=== PATIENT | male | born 1990 | race Caucasian/White ===

== ENCOUNTER 2020-01-26 12:16 | Emergency (ER) | payer MEDICAID | END 2020-01-26 12:42 | disposition left against medical advice (07) | LOC: ED 12:16 | DX: Z53.21 Procedure and treatment not carried out due to patient leaving prior to being seen by health care provider (principal) ==

== ENCOUNTER 2020-01-27 11:35 | Emergency (ER) | payer OTHER ==
[~2020-01-27] VITALS: Ht 182.9 cm; Wt 88.9 kg
[2020-01-27 11:50] VITALS: BP 120/64; Ht 182.9 cm; Wt 88.9 kg
== END 2020-01-27 14:05 | disposition home or self-care (01) ==
LOC: ED 11:35
DX: S63.501A Unspecified sprain of right wrist, initial encounter (principal); S40.012A Contusion of left shoulder, initial encounter; W20.8XXA Other cause of strike by thrown, projected or falling object, initial encounter; Y93.89 Activity, other specified; Y92.89 Other specified places as the place of occurrence of the external cause; Y99.8 Other external cause status

== ENCOUNTER 2020-03-14 17:31 | Emergency (ER) | payer OTHER ==
[~2020-03-14] VITALS: Ht 182.9 cm; Wt 86.2 kg
[2020-03-14 17:39] VITALS: Ht 182.9 cm; Wt 86.2 kg
[2020-03-14 17:51] LABS: BASOPHIL % 0.2 % (0-2); PLATELET COUNT 176 x10^3mcL (130-400); RED CELL DISTRIBUTION WIDTH 12.5 % (11.5-14.5)
[2020-03-14 17:59] LABS: CALCIUM 8.9 mg/dL (8.5-10.1); CARBON DIOXIDE 31.6 mmol/L (21-32); CHLORIDE SERUM 108 mmol/L (98-107); CREATININE SERUM 0.9 mg/dL (0.7-1.3); GFR1 > 60 mL/min; GLUCOSE SERUM 95 mg/dL (74-106); POTASSIUM SERUM 3.9 mmol/L (3.5-5.1); SODIUM SERUM 147 mmol/L (136-145)
[2020-03-14 18:05] LABS: ALBUMIN 4.1 g/dL (3.4-5.0); ALKALINE PHOSPHATASE 51 U/L (46-116); ALT/SGPT 34 U/L (16-63); AMYLASE 51 U/L (25-115); AST/SGOT 30 U/L (15-37); BILIRUBIN TOTAL 0.38 mg/dL (0.20-1.00); LIPASE 106 IU/L (73-393); MAGNESIUM 2.2 mg/dL (1.8-2.4); TOTAL PROTEIN, SERUM 7.3 g/dL (6.4-8.2)
[2020-03-14 19:40] LABS: AMPHETAMINE QUAL UR NONE DETECTED (See below)
[2020-03-14 21:11] VITALS: BP 91/52
== END 2020-03-14 21:19 | disposition home or self-care (01) ==
LOC: ED 17:31
PROVIDERS: Emergency Medicine
DX: F10.129 Alcohol abuse with intoxication, unspecified (principal)
CPT/HCPCS: G0480; J2405; J2765